=== PATIENT | female | born 1990 | race Caucasian/White ===

== ENCOUNTER 2017-05-19 11:21 | Outpatient (CLI) | payer BC ==
[~2017-05-19 11:21] MED LIST: ENDOCET 5-3251 EACH PO; IBUPROFEN800 MG PO; Motrin PO; Natalcare Rx,Pramile PO; Percocet 5/325,Endoc PO
[2017-05-19 11:50] VITALS: BP 105/62
== END 2017-05-19 21:30 | disposition home or self-care (01) ==
LOC: LDRP-OP 11:21 → 2WEST 11:22
DX: O36.8120 Decreased fetal movements, second trimester, not applicable or unspecified (principal); O26.892 Other specified pregnancy related conditions, second trimester; M54.5 Low back pain; Z87.440 Personal history of urinary (tract) infections; Z67.91 Unspecified blood type, Rh negative; Z3A.27 27 weeks gestation of pregnancy; W10.9XXA Fall (on) (from) unspecified stairs and steps, initial encounter; Y92.009 Unspecified place in unspecified non-institutional (private) residence as the place of occurrence of the external cause
CPT/HCPCS: 59025; 76805; 83030; 85460; 86850; 86900; 86901; G0378; J2790

== ENCOUNTER 2017-07-28 13:02 | Inpatient (IN) | payer BC ==
[~2017-07-28] VITALS: Ht 157.5 cm; Wt 62.7 kg
[2017-07-28] VITALS (13 sets, daily range): BP systolic 92–113; BP diastolic 51–73
[2017-07-28] MEDS ORDERED: PRENATAL TABLE1 EAC3 PO (13:47)
[2017-07-28] MEDS ORDERED: TUMS DUAL ACTI1 EACH PO (13:48)
[2017-07-28 13:54] LABS: BASOPHIL (%) 0.2 % (0-1); EOSINOPHIL (%) 0.4 % (0-5); EOSINOPHIL COUNT 0.1 K/uL (0-0.3); HEMATOCRIT 38.5 % (36.0-46.0); HEMOGLOBIN 13.6 G/DL (11.9-15.5); IMMATURE GRANULOCYTE (%) 0.4 % (0.0-0.7); LYMPHOCYTE (%) 17.7 % (15-42); LYMPHOCYTE COUNT 2.1 K/uL (1.0-2.8); MCH 33.2 PG (29.0-34.0); MCHC 35.3 G/DL (30.0-36.0); MCV 93.9 FL (83-99); MONOCYTE (%) 4.2 % (3-12); MONOCYTE COUNT 0.5 K/uL (0-0.8); NEUTROPHIL (%) 77.1 % (45-76); NEUTROPHIL COUNT 9.3 K/uL (1.8-6.4); PLATELET COUNT 172 K/uL (156-360); RBC DIS.WIDTH-CV 12.7 % (11.8-14.6); RBC DIS.WIDTH-SD 43.8 % (39-53)
[2017-07-28 18:59] LABS: AMPHETAMINE NEGATIVE (500 ng/mL); BARBITURATES NEGATIVE (200 ng/mL); BENZODIAZEPINES NEGATIVE (150 ng/mL); BUPRENORPHINE NEGATIVE (10 ng/mL); COCAINE NEGATIVE (150 ng/mL); METHADONE NEGATIVE (200 ng/mL); METHAMPHETAMINE NEGATIVE (500 ng/mL); OPIATES (MORPHINE) NEGATIVE (100 ng/mL); OXYCODONE NEGATIVE (100 ng/mL); PHENCYCLIDINE NEGATIVE (25 ng/mL); PROPOXYPHENE NEGATIVE (300 ng/mL); THC CANNABINOIDS NEGATIVE (50 ng/mL); TRICYCLIC ANTIDEPRESSANTS NEGATIVE (300 ng/mL)
[2017-07-29] VITALS (27 sets, daily range): BP systolic 91–125; BP diastolic 51–73
[2017-07-29] MEDS ORDERED: IBUPROFEN800 MG PO (15:22)
[2017-07-30 07:33] VITALS: BP 113/61
[2017-07-30 14:54] VITALS: BP 130/64
[2017-07-31 07:12] VITALS: BP 117/76
== END 2017-07-31 13:00 | disposition home or self-care (01) | DRG 775 ==
LOC: LDRP-OP 13:02 → 2WEST 13:03 → LDRP-OP 09-17 21:53
PROVIDERS: Midwife
DX: O70.0 First degree perineal laceration during delivery (principal); O41.03X0 Oligohydramnios, third trimester, not applicable or unspecified; O69.3XX0 Labor and delivery complicated by short cord, not applicable or unspecified; O99.824 Streptococcus B carrier state complicating childbirth; O26.893 Other specified pregnancy related conditions, third trimester; Z67.11 Type A blood, Rh negative; Z3A.37 37 weeks gestation of pregnancy; Z37.0 Single live birth
CPT/HCPCS: 83030; 85025; 86850; 86870; 86900; 86901; C1755; G0378; J2405; J2540; J2790; J3010; J7120

== ENCOUNTER 2017-08-05 17:18 | Emergency (ER) | payer BC ==
[~2017-08-05] VITALS: Ht 160 cm; Wt 59.4 kg
[~2017-08-05 17:18] MED LIST changes: +PRENATAL TABLE1 EAC3 PO; +TUMS DUAL ACTI1 EACH PO
[2017-08-05 18:04] LABS: APPEARANCE CLEAR ((CLEAR)); BILIRUBIN NEGATIVE; BLOOD LARGE; COLOR STRAW ((YELLOW)); GLUCOSE (STRIP) NEGATIVE; KETONES NEGATIVE; LEUKOCYTES LARGE; NITRITE NEGATIVE; PROTEIN (STRIP) NEGATIVE; SPECIFIC GRAVITY 1.009 (1.000-1.030); UROBILINOGEN 0.2 MG/DL (0.2-1.0)
[2017-08-05 18:09] LABS: BACTERIA RARE /HPF; EPITHELIAL CELLS RARE /HPF; MUCUS TRACE /LPF; UCUL ADDED? YES; WHITE BLOOD CELLS 15-20 /HPF (0-5)
[2017-08-05 18:27] LABS: HEMATOCRIT 41.8 % (36.0-46.0); HEMOGLOBIN 14.6 G/DL (11.9-15.5); MCH 33.2 PG (29.0-34.0); MCHC 34.9 G/DL (30.0-36.0); RBC DIS.WIDTH-CV 12.2 % (11.8-14.6)
[2017-08-05 18:28] LABS: PLATELET COUNT 229 K/uL (156-360)
[2017-08-05] MEDS ORDERED: KEFLEX500 MG PO (18:30)
[2017-08-05 18:35] LABS: CHLORIDE 106 mEq/L (99-109)
[2017-08-05 18:36] LABS: POTASSIUM 3.7 mEq/L (3.7-5.4); SODIUM 141 mEq/L (136-147)
[2017-08-05 18:37] LABS: GLUCOSE 88 mg/dL (70-99)
[2017-08-05 18:41] LABS: CREATININE 0.7 mg/dL (0.6-1.3); GFR ESTIMATE (CALCULATED) > 59 mL/min/
[2017-08-05 18:42] LABS: UREA NITROGEN (BUN) 8 mg/dL (9-23)
[2017-08-05 19:36] VITALS: BP 124/72
== END 2017-08-05 19:38 | disposition home or self-care (01) ==
LOC: EXP 17:18 → EME 17:18 → EXP 19:38
PROVIDERS: Physician Assistant
DX: O86.20 Urinary tract infection following delivery, unspecified (principal); O86.4 Pyrexia of unknown origin following delivery; Z87.448 Personal history of other diseases of urinary system; Z98.890 Other specified postprocedural states; Z91.040 Latex allergy status; Z91.048 Other nonmedicinal substance allergy status; Z88.8 Allergy status to other drugs, medicaments and biological substances
CPT/HCPCS: 80048; 81003; 85027; 87040; 87086; 99281; 99285; J0696; J7030